=== PATIENT | male | born 2000 | race Caucasian/White ===

== ENCOUNTER 2020-07-24 08:04 | Emergency (ER) | payer SELFPAY ==
[~2020-07-24] VITALS: Ht 180.3 cm; Wt 60.3 kg
[2020-07-24 08:23] VITALS: BP 109/63
--- NOTE | 2020-07-24 09:12 | NUR ---
TONYA CRUZ AT BEDSIDE TO PLACE SPLINT
== END 2020-07-24 09:43 | disposition home or self-care (01) ==
LOC: ED 08:57
DX: S62.356A Nondisplaced fracture of shaft of fifth metacarpal bone, right hand, initial encounter for closed fracture (principal); W22.8XXA Striking against or struck by other objects, initial encounter; Y93.89 Activity, other specified; Y92.098 Other place in other non-institutional residence as the place of occurrence of the external cause; Y99.8 Other external cause status
CPT/HCPCS: 29125; 99283